=== PATIENT | female | born 1960 | race Caucasian/White ===

== ENCOUNTER → 2016-10-18 | Outpatient (CLI) | payer OTHER ==
[~2016-10-18] VITALS: Ht 157.5 cm; Wt 105.2 kg
[~2016-10-18] MED LIST: ACTIVELLA1 TAB PO; ASPIR-TRIN325 M1 PO; ATENOLOL PO; ATORVASTATIN CA40 MG PO; CARAFATE1 GM PO; CARISOPRODOL350 MG PO; CYCLOBENZAPRINE5 MG PO; CYMBALTA30 MG PO; CYMBALTA60 MG PO; FORTAMET1000 M1 PO; Flexeril PO; GLUCOPHAGE1000 MG PO; IMDUR120 MG PO; IMDUR60 MG PO; JANUMET 50/11 TABLET PO; K-DUR20 MEQ PO; LANTUS 3 M100 UNITS/ SC; LANTUS 3 M100 UNITS1 SC; LIPITOR10 MG PO; LIPITOR40 MG PO; LORCET 5-325 M1 EACH PO; LYRICA100 MG PO; LYRICA150 MG PO; METFORMIN HCL1000 MG PO; MOTRIN600 MG PO; NIASPAN,SLO-NI500 MG PO; NITROLINGUAL S4.9 GM MM; NITROSTAT,NITR0.4 M1 SL; NITROSTAT0.4 MG SL; NORVASC2.5 MG PO; NOVOLOG MI100 UNIT/M SC; NOVOLOG PE100 UNITS/ SC; PANTOPRAZOLE SO40 MG PO; PHENERGAN12.5 M1 PO; PLAVIX75 MG PO; PRINIVIL10 MG PO; PROMETHAZINE12.5 M1 PO; PROTONIX40 MG PO; Phenergan PO; REGLAN5 MG PO; Reglan PO; TENORMIN50 MG PO; TOPROL XL25 MG PO; TOPROL XL50 MG PO; TRAMADOL HCL50 MG PO; TRESIBA FL100 UNIT/1 SC; TRESIBA FL200 UNIT/1 SC; Tenormin PO; ULTRAM50 MG PO; VALIUM5 MG PO; ZESTRIL,PRINIVI10 M1 PO; ZETIA10 MG PO; ZOFRAN4 MG PO
[2016-10-18 08:19] LABS: POINT-OF-CARE METER ID UU13113694; POINT-OF-CARE USER ID AHSRSCGAB
== END | disposition home or self-care (01) ==
LOC: AMB 06:56
PROVIDERS: Internal Medicine
PROC: 0DB48ZX Excision of Esophagogastric Junction, Via Natural or Artificial Opening Endoscopic, Diagnostic (ICD-10-PCS; principal; 2016-10-18)
PROC: 0DB68ZX Excision of Stomach, Via Natural or Artificial Opening Endoscopic, Diagnostic (ICD-10-PCS; principal; 2016-10-18)
PROC: 0DJD8ZZ Inspection of Lower Intestinal Tract, Via Natural or Artificial Opening Endoscopic (ICD-10-PCS; principal; 2016-10-18)
DX: Z12.11 Encounter for screening for malignant neoplasm of colon (principal); R13.10 Dysphagia, unspecified; J44.9 Chronic obstructive pulmonary disease, unspecified; I10 Essential (primary) hypertension; E11.9 Type 2 diabetes mellitus without complications; I25.2 Old myocardial infarction; Z95.1 Presence of aortocoronary bypass graft; Z87.891 Personal history of nicotine dependence; Z88.0 Allergy status to penicillin
CPT/HCPCS: 82948; 88305; 88342 TC; J3010

== ENCOUNTER → 2017-01-11 | Day surgery (SDC) | payer OTHER ==
[~2017-01-11] VITALS: Ht 157.5 cm; Wt 106.1 kg
== END | disposition home or self-care (01) ==
LOC: CATH 06:32
DX: Z53.9 Procedure and treatment not carried out, unspecified reason (principal)

== ENCOUNTER 2017-01-25 06:34 | Day surgery (SDC) | payer OTHER ==
[~2017-01-25] VITALS: Ht 157.5 cm; Wt 105.7 kg
[2017-01-25 07:42] LABS: POINT-OF-CARE METER ID UU13113696
[2017-01-25 10:50] LABS: POINT-OF-CARE METER ID UU13113819; POINT-OF-CARE USER ID 515036437
== END 2017-01-25 15:10 | disposition home or self-care (01) ==
LOC: CATH 06:34
PROVIDERS: Surgery
PROC: B4101ZZ Fluoroscopy of Abdominal Aorta using Low Osmolar Contrast (ICD-10-PCS; principal; 2017-01-25)
DX: I73.9 Peripheral vascular disease, unspecified (principal); I70.8 Atherosclerosis of other arteries; I25.10 Atherosclerotic heart disease of native coronary artery without angina pectoris; K21.9 Gastro-esophageal reflux disease without esophagitis; E11.40 Type 2 diabetes mellitus with diabetic neuropathy, unspecified; E78.00 Pure hypercholesterolemia, unspecified; Z88.0 Allergy status to penicillin; E66.9 Obesity, unspecified; Z68.41 Body mass index [BMI] 40.0-44.9, adult; E78.5 Hyperlipidemia, unspecified; Z79.02 Long term (current) use of antithrombotics/antiplatelets; Z79.4 Long term (current) use of insulin; Z79.82 Long term (current) use of aspirin; Z87.891 Personal history of nicotine dependence; Z80.3 Family history of malignant neoplasm of breast; Z80.1 Family history of malignant neoplasm of trachea, bronchus and lung; Z82.49 Family history of ischemic heart disease and other diseases of the circulatory system
CPT/HCPCS: 82948; C1750; C1760; C1769; C1894; J1580; J1644; J2250; J2405; J3010; J7050; S0020; S0030

== ENCOUNTER 2017-05-07 17:56 | Inpatient (IN) | payer OTHER ==
[~2017-05-07] VITALS: Ht 157.5 cm; Wt 95.9 kg
[2017-05-07] MEDS ORDERED: NOVOLOG MI100 UNIT/2 SC (18:04)
[2017-05-07 19:03] LABS: HEMATOCRIT 52.4 % (36.0-46.0); MCH 30.9 PG (29.0-34.0); MCHC 33.2 G/DL (30.0-36.0); MCV 93.1 FL (83-99); PLATELET COUNT 510 K/uL (156-360); RBC DIS.WIDTH-CV 15.5 % (11.8-14.6); RBC DIS.WIDTH-SD 53.5 % (39-53); RED BLOOD COUNT 5.63 M/uL (3.80-5.20); WHITE BLOOD COUNT 19.1 K/uL (4.1-10.2)
[2017-05-07 19:16] LABS: CHLORIDE 105 mEq/L (99-109); POTASSIUM 4.9 mEq/L (3.7-5.4); SODIUM 134 mEq/L (136-147)
[2017-05-07 19:19] LABS: ANION GAP 27 MEQ/L (2-14)
[2017-05-07 19:21] LABS: GFR ESTIMATE (CALCULATED) 33 mL/min/
[2017-05-07 19:22] LABS: UREA NITROGEN (BUN) 21 mg/dL (9-23)
[2017-05-07 19:23] LABS: GLUCOSE 593 mg/dL (70-99)
[2017-05-07 19:28] LABS: TROP-I INTERPRETATION NEGATIVE; TROPONIN-I < 0.01 ng/mL (0.0-0.30)
[2017-05-07 19:48] LABS: CARBOXY HGB 0.4 % (0-5); METHEMOGLOBIN 0.8 % (0-1.5); PO2 141 mm Hg (80-100)
[2017-05-07 19:49] LABS: COMMENTS - BLOOD GASES C+; DEVICE RA; PCO2 < 20 mm Hg (35-45); SITE LR; TOTAL RESP RATE 26 resp/min; pH < 6.91 (7.35-7.45)
[2017-05-07 20:29] LABS: CHLORIDE 108 mEq/L (99-109); POTASSIUM 4.6 mEq/L (3.7-5.4); SODIUM 135 mEq/L (136-147)
[2017-05-07 20:30] LABS: MAGNESIUM 2.6 mg/dL (1.3-2.7)
[2017-05-07 20:32] LABS: ANION GAP 26 MEQ/L (2-14)
[2017-05-07 20:35] LABS: GFR ESTIMATE (CALCULATED) 38 mL/min/
[2017-05-07 20:36] LABS: UREA NITROGEN (BUN) 21 mg/dL (9-23)
[2017-05-07 20:37] LABS: GLUCOSE 595 mg/dL (70-99); LIPASE 61 U/L (1.0-51.0)
[2017-05-07 20:41] LABS: ADD MIUA? YES; BILIRUBIN NEGATIVE; BLOOD SMALL; COLOR STRAW ((YELLOW)); GLUCOSE (STRIP) >=500; KETONES 80; LEUKOCYTES NEGATIVE; NITRITE NEGATIVE; PROTEIN (STRIP) 100; SPECIFIC GRAVITY 1.018 (1.000-1.030); UROBILINOGEN 0.2 MG/DL (0.2-1.0)
[2017-05-07 20:43] LABS: BACTERIA RARE /HPF; EPITHELIAL CELLS RARE /HPF; MUCUS TRACE /LPF; RED BLOOD CELLS 0-5 /HPF (0-5); WHITE BLOOD CELLS 0-5 /HPF (0-5)
[2017-05-07] MEDS ORDERED: MELOXICAM15 MG PO (20:44)
[2017-05-07] MEDS ORDERED: NITROSTAT0.4 MG SL (20:46)
[2017-05-07 20:59] LABS: Estimated Average Glucose 318 mg/dL (70-123); HEMOGLOBIN A1c (GLYCOHEMOGLOB) 12.7 % HGB (Below 5.7)
[2017-05-07 22:30] VITALS: BP 102/63
[2017-05-07 23:00] VITALS: BP 126/63; BP 140/66
[2017-05-07 23:30] VITALS: BP 113/84
[2017-05-07 23:37] LABS: POINT-OF-CARE METER ID UU14162636
[2017-05-07 23:59] LABS: METH RESISTANT S AUREUS PCR NEGATIVE (NEGATIVE)
[2017-05-08] VITALS (25 sets, daily range): BP systolic 98–165; BP diastolic 61–112
[2017-05-08] LABS: PROBE CHECK PASS; SPECIMEN PROCESSING CONTROL PASS
[2017-05-08 00:37] LABS: CARBOXY HGB 0.2 % (0-5); METHEMOGLOBIN 1.4 % (0-1.5); PCO2 < 19 mm Hg (35-45)
[2017-05-08 00:38] LABS: PEEP 5 CM/H20; PO2 422 mm Hg (80-100); TIDAL VOLUME 550 ML; TOTAL RESP RATE 33 resp/min; pH 6.97 (7.35-7.45)
[2017-05-08 00:39] LABS: DEVICE VENT; FI02 100 %; MECHANICAL RATE 25 resp/min; MODE ACVC+; SITE LR
[2017-05-08 00:59] LABS: VENOUS PCO2 25 mm Hg (41-51)
[2017-05-08 01:05] LABS: CHLORIDE 118 mEq/L (99-109); POTASSIUM 4.4 mEq/L (3.7-5.4); SODIUM 141 mEq/L (136-147)
[2017-05-08 01:07] LABS: GLUCOSE 368 mg/dL (70-99)
[2017-05-08 01:08] LABS: CARBON DIOXIDE (BICARBONATE) ND MEQ/L (20-31)
[2017-05-08 01:08] LABS: ANION GAP 20 MEQ/L (2-14)
[2017-05-08 01:12] LABS: UREA NITROGEN (BUN) 19 mg/dL (9-23)
[2017-05-08 01:15] LABS: GFR ESTIMATE (CALCULATED) 55 mL/min/
[2017-05-08 01:22] LABS: POINT-OF-CARE METER ID UU14162636
[2017-05-08 01:59] LABS: POINT-OF-CARE METER ID UU14162636
[2017-05-08 03:03] LABS: POINT-OF-CARE METER ID UU14162636
[2017-05-08 03:45] LABS: POINT-OF-CARE METER ID UU14162636
[2017-05-08 04:53] LABS: POINT-OF-CARE METER ID UU13113731
[2017-05-08 04:58] LABS: HEMATOCRIT 46.7 % (36.0-46.0); MCH 30.6 PG (29.0-34.0); MCHC 33.2 G/DL (30.0-36.0); MCV 92.3 FL (83-99); MEAN PLAT.VOLUME 10.1 uM^3 (9.5-12.4); PLATELET COUNT 424 K/uL (156-360); RBC DIS.WIDTH-CV 15.8 % (11.8-14.6); RBC DIS.WIDTH-SD 53.2 % (39-53); RED BLOOD COUNT 5.06 M/uL (3.80-5.20); WHITE BLOOD COUNT 21.7 K/uL (4.1-10.2)
[2017-05-08 05:09] LABS: CHLORIDE 120 mEq/L (99-109); SODIUM 144 mEq/L (136-147)
[2017-05-08 05:11] LABS: GLUCOSE 275 mg/dL (70-99); MAGNESIUM 2.1 mg/dL (1.3-2.7)
[2017-05-08 05:12] LABS: ANION GAP 21 MEQ/L (2-14)
[2017-05-08 05:15] LABS: GFR ESTIMATE (CALCULATED) 50 mL/min/
[2017-05-08 05:16] LABS: UREA NITROGEN (BUN) 20 mg/dL (9-23)
[2017-05-08 05:55] LABS: POINT-OF-CARE METER ID UU14162636
[2017-05-08 06:55] LABS: POINT-OF-CARE METER ID UU14162636
[2017-05-08 07:44] LABS: POINT-OF-CARE METER ID UU13113731
[2017-05-08 08:38] LABS: POINT-OF-CARE METER ID UU14162636
[2017-05-08 09:42] LABS: POINT-OF-CARE METER ID UU14162636
[2017-05-08 09:44] LABS: ANION GAP 24 MEQ/L (2-14); CHLORIDE 116 MEQ/L (99-109); GFR ESTIMATE (CALCULATED) > 59 mL/min/; GLUCOSE 268 mg/dL (70-99); POTASSIUM 4.2 MEQ/L (3.7-5.4); SAMPLE HEMOLYSIS CHECK 1; SAMPLE ICTERIC CHECK 0; SAMPLE LIPEMIA CHECK 0; SODIUM 145 MEQ/L (136-147); UREA NITROGEN (BUN) 20 mg/dL (9-23)
[2017-05-08 09:46] LABS: POINT-OF-CARE METER ID UU13113731
[2017-05-08 09:57] LABS: POINT-OF-CARE METER ID UU13113702
[2017-05-08 09:57] LABS: POINT-OF-CARE METER ID UU14162636
[2017-05-08 09:57] LABS: POINT-OF-CARE METER ID UU13113702
[2017-05-08 11:08] LABS: POINT-OF-CARE METER ID UU14162636
[2017-05-08 11:54] LABS: POINT-OF-CARE METER ID UU14162636
[2017-05-08 13:01] LABS: POINT-OF-CARE METER ID UU13113748
[2017-05-08 13:13] LABS: ANION GAP 21 MEQ/L (2-14); CHLORIDE 115 MEQ/L (99-109); GFR ESTIMATE (CALCULATED) > 59 mL/min/; GLUCOSE 193 mg/dL (70-99); MAGNESIUM 1.9 mg/dl (1.3-2.7); POTASSIUM 3.2 MEQ/L (3.7-5.4); SAMPLE HEMOLYSIS CHECK 0; SAMPLE ICTERIC CHECK 0; SAMPLE LIPEMIA CHECK 1; SODIUM 143 MEQ/L (136-147); UREA NITROGEN (BUN) 20 mg/dL (9-23)
[2017-05-08 14:10] LABS: POINT-OF-CARE METER ID UU13113731
[2017-05-08 15:14] LABS: POINT-OF-CARE METER ID UU14162636
[2017-05-08 16:32] LABS: POINT-OF-CARE METER ID UU13113731
[2017-05-08 16:48] LABS: ANION GAP 20 MEQ/L (2-14); CHLORIDE 112 MEQ/L (99-109); GFR ESTIMATE (CALCULATED) > 59 mL/min/; GLUCOSE 162 mg/dL (70-99); MAGNESIUM 1.8 mg/dl (1.3-2.7); POTASSIUM 2.9 MEQ/L (3.7-5.4); SAMPLE HEMOLYSIS CHECK 0; SAMPLE ICTERIC CHECK 0; SAMPLE LIPEMIA CHECK 0; SODIUM 142 MEQ/L (136-147); UREA NITROGEN (BUN) 19 mg/dL (9-23)
[2017-05-08 17:19] LABS: POINT-OF-CARE METER ID UU13113731
[2017-05-08 18:32] LABS: POINT-OF-CARE METER ID UU13113731
[2017-05-08 19:47] LABS: POINT-OF-CARE METER ID UU13113748
[2017-05-08 20:37] LABS: ANION GAP 20 MEQ/L (2-14); CHLORIDE 109 MEQ/L (99-109); GFR ESTIMATE (CALCULATED) > 59 mL/min/; GLUCOSE 177 mg/dL (70-99); MAGNESIUM 1.7 mg/dl (1.3-2.7); POTASSIUM 2.9 MEQ/L (3.7-5.4); SAMPLE HEMOLYSIS CHECK 0; SAMPLE ICTERIC CHECK 0; SAMPLE LIPEMIA CHECK 0; SODIUM 141 MEQ/L (136-147); UREA NITROGEN (BUN) 19 mg/dL (9-23)
[2017-05-08 20:45] LABS: POINT-OF-CARE METER ID UU13113731
[2017-05-08 21:46] LABS: POINT-OF-CARE METER ID UU13113731
[2017-05-08 22:50] LABS: BASE EXCESS -4.5 mEq/L (-3 to +3); BICARBONATE 15.2 mEq/L (22-26); CARBOXY HGB 0.3 % (0-5); METHEMOGLOBIN 1.3 % (0-1.5); PCO2 19 mm Hg (35-45)
[2017-05-08 22:51] LABS: COMMENTS - BLOOD GASES C+; DEVICE VENT; FI02 30 %; MECHANICAL RATE 25 resp/min; MODE ACVC+; PEEP 5 CM/H20; PO2 156 mm Hg (80-100); SITE LR; TIDAL VOLUME 550 ML; TOTAL RESP RATE 28 resp/min; pH 7.51 (7.35-7.45)
[2017-05-08 23:47] LABS: POINT-OF-CARE METER ID UU13113731
[2017-05-09] VITALS (23 sets, daily range): BP systolic 99–151; BP diastolic 69–101
[2017-05-09 00:40] LABS: POINT-OF-CARE METER ID UU13113731
[2017-05-09 01:02] LABS: MAGNESIUM 1.8 mg/dL (1.3-2.7)
[2017-05-09 01:09] LABS: CHLORIDE 112 mEq/L (99-109); POTASSIUM 2.7 mEq/L (3.7-5.4); SODIUM 140 mEq/L (136-147)
[2017-05-09 01:11] LABS: GLUCOSE 166 mg/dL (70-99)
[2017-05-09 01:12] LABS: ANION GAP 15 MEQ/L (2-14)
[2017-05-09 01:14] LABS: GFR ESTIMATE (CALCULATED) 50 mL/min/
[2017-05-09 01:15] LABS: UREA NITROGEN (BUN) 18 mg/dL (9-23)
[2017-05-09 01:46] LABS: POINT-OF-CARE METER ID UU14162636
[2017-05-09 02:49] LABS: POINT-OF-CARE METER ID UU14162636
[2017-05-09 03:48] LABS: POINT-OF-CARE METER ID UU14162636
[2017-05-09 04:45] LABS: POINT-OF-CARE METER ID UU14162636
[2017-05-09 05:36] LABS: BASE EXCESS -9.9 mEq/L (-3 to +3); BICARBONATE 12.7 mEq/L (22-26); CARBOXY HGB 0.6 % (0-5); METHEMOGLOBIN 1.1 % (0-1.5); PCO2 22 mm Hg (35-45)
[2017-05-09 05:37] LABS: COMMENTS - BLOOD GASES C+; DEVICE VENT; FI02 30 %; MODE ACVC+; PO2 64 mm Hg (80-100); SITE LR; pH 7.37 (7.35-7.45)
[2017-05-09 05:38] LABS: MECHANICAL RATE 20 resp/min; PEEP 5 CM/H20; TIDAL VOLUME 450 ML; TOTAL RESP RATE 25 resp/min
[2017-05-09 05:44] LABS: ANION GAP 20 MEQ/L (2-14); CHLORIDE 111 MEQ/L (99-109); GFR ESTIMATE (CALCULATED) 55 mL/min/; GLUCOSE 213 mg/dL (70-99); MAGNESIUM 1.6 mg/dl (1.3-2.7); POTASSIUM 3.6 MEQ/L (3.7-5.4); SAMPLE HEMOLYSIS CHECK 0; SAMPLE ICTERIC CHECK 0; SAMPLE LIPEMIA CHECK 0; SODIUM 143 MEQ/L (136-147); UREA NITROGEN (BUN) 19 mg/dL (9-23)
[2017-05-09 05:47] LABS: POINT-OF-CARE METER ID UU14162636
[2017-05-09 06:35] LABS: POINT-OF-CARE METER ID UU14162636
[2017-05-09 07:37] LABS: POINT-OF-CARE METER ID UU14162636
[2017-05-09 08:32] LABS: ALKALINE PHOSPHATASE 65 IU/L (3-129); ANION GAP 13 MEQ/L (2-14); CHLORIDE 113 MEQ/L (99-109); GFR ESTIMATE (CALCULATED) > 59 mL/min/; GLUCOSE 145 mg/dL (70-99); MAGNESIUM 1.5 mg/dl (1.3-2.7); POTASSIUM 3.1 MEQ/L (3.7-5.4); SAMPLE HEMOLYSIS CHECK 0; SAMPLE ICTERIC CHECK 0; SAMPLE LIPEMIA CHECK 0; SODIUM 143 MEQ/L (136-147); TOTAL BILIRUBIN 0.6 MG/DL (0.0-1.0); UREA NITROGEN (BUN) 18 mg/dL (9-23)
[2017-05-09 08:36] LABS: EOSINOPHIL (%) 0 % (0-5); HEMATOCRIT 43.5 % (36.0-46.0); IMMATURE GRANULOCYTE (%) 0.5 % (0.0-0.7); IMMATURE GRANULOCYTE COUNT 0.1 K/uL; INSTRUMENT ABS NEUTROPHIL CT 8.6 K/uL; LYMPHOCYTE COUNT 0.9 K/uL (1.0-2.8); MCH 30.8 PG (29.0-34.0); MCHC 36.3 G/DL (30.0-36.0); MONOCYTE (%) 12.2 % (3-12); MONOCYTE COUNT 1.3 K/uL (0-0.8); NEUTROPHIL (%) 78.9 % (45-76); NEUTROPHIL COUNT 8.6 K/uL (1.8-6.4); RBC DIS.WIDTH-SD 45.9 % (39-53); RED BLOOD COUNT 5.13 M/uL (3.80-5.20)
[2017-05-09 08:45] LABS: MCV 84.8 FL (83-99)
[2017-05-09 08:53] LABS: POINT-OF-CARE METER ID UU14314082
[2017-05-09 08:55] LABS: PLAT.SUFFICIENCY ADEQUATE; PLATELET CLUMPS PRESENT - PLATELET COUNT APPEARS ADQ.; PLATELET COUNT UNABLE TO REPORT K/uL (156-360)
[2017-05-09 09:13] LABS: POINT-OF-CARE METER ID UU14314082
[2017-05-09 10:07] LABS: POINT-OF-CARE METER ID UU14314082
[2017-05-09 11:07] LABS: POINT-OF-CARE METER ID UU14314082
[2017-05-09 12:25] LABS: POINT-OF-CARE METER ID UU14314082
[2017-05-09 12:57] LABS: ANION GAP 14 MEQ/L (2-14); CHLORIDE 112 MEQ/L (99-109); GFR ESTIMATE (CALCULATED) > 59 mL/min/; GLUCOSE 171 mg/dL (70-99); MAGNESIUM 1.6 mg/dl (1.3-2.7); POTASSIUM 3.1 MEQ/L (3.7-5.4); SAMPLE HEMOLYSIS CHECK 0; SAMPLE ICTERIC CHECK 0; SAMPLE LIPEMIA CHECK 0; SODIUM 143 MEQ/L (136-147); UREA NITROGEN (BUN) 18 mg/dL (9-23)
[2017-05-09 13:29] LABS: POINT-OF-CARE METER ID UU14314082
[2017-05-09 14:47] LABS: POINT-OF-CARE METER ID UU14314082
[2017-05-09 16:29] LABS: ANION GAP 17 MEQ/L (2-14); CHLORIDE 113 MEQ/L (99-109); GFR ESTIMATE (CALCULATED) > 59 mL/min/; GLUCOSE 123 mg/dL (70-99); MAGNESIUM 1.6 mg/dl (1.3-2.7); POTASSIUM 3.1 MEQ/L (3.7-5.4); SAMPLE HEMOLYSIS CHECK 0; SAMPLE ICTERIC CHECK 0; SAMPLE LIPEMIA CHECK 0; SODIUM 146 MEQ/L (136-147); UREA NITROGEN (BUN) 16 mg/dL (9-23)
[2017-05-09 18:06] LABS: POINT-OF-CARE METER ID UU14314082
[2017-05-10] VITALS (18 sets, daily range): BP systolic 0–136; BP diastolic 0–78
[2017-05-10 00:10] LABS: POINT-OF-CARE METER ID UU13113803
[2017-05-10 05:27] LABS: EOSINOPHIL (%) 0 % (0-5); IMMATURE GRANULOCYTE (%) 0.6 % (0.0-0.7); IMMATURE GRANULOCYTE COUNT 0.1 K/uL; INSTRUMENT ABS NEUTROPHIL CT 8.2 K/uL; LYMPHOCYTE COUNT 1.3 K/uL (1.0-2.8); MCH 30.5 PG (29.0-34.0); MCHC 35.6 G/DL (30.0-36.0); MCV 85.8 FL (83-99); MEAN PLAT.VOLUME 10.2 uM^3 (9.5-12.4); MONOCYTE (%) 11.7 % (3-12); MONOCYTE COUNT 1.3 K/uL (0-0.8); NEUTROPHIL COUNT 8.2 K/uL (1.8-6.4); PLATELET COUNT 224 K/uL (156-360); RBC DIS.WIDTH-CV 15.3 % (11.8-14.6); RBC DIS.WIDTH-SD 48.2 % (39-53); RED BLOOD COUNT 4.78 M/uL (3.80-5.20); WHITE BLOOD COUNT 10.8 K/uL (4.1-10.2)
[2017-05-10 05:36] LABS: BASE EXCESS -6.5 mEq/L (-3 to +3); BICARBONATE 16.5 mEq/L (22-26); CARBOXY HGB 1.2 % (0-5); COMMENTS - BLOOD GASES C+A+; DEVICE VENT; FI02 30 %; INSPIRATION TIME 1.1 seconds; MECHANICAL RATE 20 resp/min; MODE AC; PCO2 26 mm Hg (35-45); PEEP 5 CM/H20; PO2 86 mm Hg (80-100); SITE LR; TIDAL VOLUME 450 ML; TOTAL RESP RATE 21 resp/min; pH 7.41 (7.35-7.45)
[2017-05-10 05:55] LABS: POINT-OF-CARE METER ID UU14314083
[2017-05-10 06:21] LABS: ANION GAP 15 MEQ/L (2-14); CHLORIDE 111 MEQ/L (99-109); GFR ESTIMATE (CALCULATED) > 59 mL/min/; POTASSIUM 3.7 MEQ/L (3.7-5.4); SAMPLE HEMOLYSIS CHECK 0; SAMPLE ICTERIC CHECK 0; SAMPLE LIPEMIA CHECK 0; SODIUM 142 MEQ/L (136-147); UREA NITROGEN (BUN) 23 mg/dL (9-23)
[2017-05-10 06:25] LABS: GLUCOSE 311 mg/dL (70-99)
[2017-05-10 10:59] LABS: POINT-OF-CARE METER ID UU14314083
[2017-05-10 14:31] LABS: POINT-OF-CARE METER ID UU14314083
[2017-05-10 17:50] LABS: POINT-OF-CARE METER ID UU14314083
[2017-05-10 23:08] LABS: POINT-OF-CARE METER ID UU14314083; POINT-OF-CARE USER ID LABHNS84
[2017-05-11] VITALS (17 sets, daily range): BP systolic 93–133; BP diastolic 50–85
[2017-05-11 01:54] LABS: POINT-OF-CARE METER ID UU13113748; POINT-OF-CARE USER ID LABHNS84
[2017-05-11 05:47] LABS: EOSINOPHIL (%) 0 % (0-5); HEMATOCRIT 39.3 % (36.0-46.0); IMMATURE GRANULOCYTE (%) 0.4 % (0.0-0.7); INSTRUMENT ABS NEUTROPHIL CT 4.6 K/uL; LYMPHOCYTE COUNT 1.3 K/uL (1.0-2.8); MCH 30.2 PG (29.0-34.0); MCHC 34.1 G/DL (30.0-36.0); MCV 88.5 FL (83-99); MEAN PLAT.VOLUME 10.3 uM^3 (9.5-12.4); MONOCYTE (%) 13.3 % (3-12); MONOCYTE COUNT 0.9 K/uL (0-0.8); NEUTROPHIL (%) 66.8 % (45-76); NEUTROPHIL COUNT 4.6 K/uL (1.8-6.4); PLATELET COUNT 209 K/uL (156-360); RBC DIS.WIDTH-CV 15.4 % (11.8-14.6); RBC DIS.WIDTH-SD 50.5 % (39-53); RED BLOOD COUNT 4.44 M/uL (3.80-5.20); WHITE BLOOD COUNT 6.9 K/uL (4.1-10.2)
[2017-05-11 06:31] LABS: ANION GAP 12 MEQ/L (2-14); CHLORIDE 113 MEQ/L (99-109); GFR ESTIMATE (CALCULATED) > 59 mL/min/; GLUCOSE 167 mg/dL (70-99); SAMPLE HEMOLYSIS CHECK 0; SAMPLE ICTERIC CHECK 0; SAMPLE LIPEMIA CHECK 0; UREA NITROGEN (BUN) 27 mg/dL (9-23)
[2017-05-11 06:36] LABS: SODIUM 152 MEQ/L (136-147)
[2017-05-11 10:32] LABS: POINT-OF-CARE METER ID UU13113748
[2017-05-11 15:24] LABS: POINT-OF-CARE METER ID UU13113748
[2017-05-11 17:39] LABS: POINT-OF-CARE METER ID UU14174217
[2017-05-11 22:06] LABS: POINT-OF-CARE METER ID UU14314084
[2017-05-12 00:18] VITALS: BP 100/56
[2017-05-12 02:16] LABS: POINT-OF-CARE METER ID UU14208750
[2017-05-12 03:50] VITALS: BP 95/55
[2017-05-12 05:13] LABS: POINT-OF-CARE METER ID UU14314084
[2017-05-12 07:37] VITALS: BP 108/64
[2017-05-12 08:40] LABS: ANION GAP 11 MEQ/L (2-14); CHLORIDE 106 MEQ/L (99-109); GFR ESTIMATE (CALCULATED) > 59 mL/min/; POTASSIUM 3.3 MEQ/L (3.7-5.4); SAMPLE HEMOLYSIS CHECK 0; SAMPLE ICTERIC CHECK 0; SAMPLE LIPEMIA CHECK 0; UREA NITROGEN (BUN) 22 mg/dL (9-23)
[2017-05-12 08:41] LABS: GLUCOSE 120 mg/dL (70-99); SODIUM 144 MEQ/L (136-147)
[2017-05-12 11:32] LABS: POINT-OF-CARE METER ID UU14314084
[2017-05-12 16:46] LABS: POINT-OF-CARE METER ID UU14314084; POINT-OF-CARE USER ID STWLMB34
[2017-05-12 17:02] VITALS: BP 124/60
[2017-05-12 21:28] LABS: POINT-OF-CARE METER ID UU14314084
[2017-05-13 00:46] VITALS: BP 102/59
[2017-05-13 07:36] LABS: ANION GAP 10 MEQ/L (2-14); CHLORIDE 110 MEQ/L (99-109); GFR ESTIMATE (CALCULATED) > 59 mL/min/; GLUCOSE 147 mg/dL (70-99); POTASSIUM 3.4 MEQ/L (3.7-5.4); SAMPLE HEMOLYSIS CHECK 0; SAMPLE ICTERIC CHECK 0; SAMPLE LIPEMIA CHECK 0; SODIUM 146 MEQ/L (136-147); UREA NITROGEN (BUN) 15 mg/dL (9-23)
[2017-05-13 08:00] VITALS: BP 113/62
[2017-05-13] MEDS ORDERED: LISINOPRIL5 MG PO (10:33)
[2017-05-13] MEDS ORDERED: TOPROL XL25 MG PO (10:33)
[2017-05-13] MEDS ORDERED: LEVAQUIN750 MG PO (10:34)
== END 2017-05-13 11:45 | disposition home or self-care (01) | DRG 637 ==
LOC: EME 17:56 → 4WEST 20:12 → EDOF 20:12 → ENRESERV 20:19 → 4WEST 22:19 → ENRESERV 05-11 16:51 → 2EAST 05-11 19:56
PROVIDERS: Emergency Medicine; Family Medicine; Hospitalist; Internal Medicine Critical Care Medicine; Internal Medicine Pulmonary Disease; Surgery
DX: E10.10 Type 1 diabetes mellitus with ketoacidosis without coma (principal); J18.9 Pneumonia, unspecified organism; J96.01 Acute respiratory failure with hypoxia; I10 Essential (primary) hypertension; E10.40 Type 1 diabetes mellitus with diabetic neuropathy, unspecified; E78.5 Hyperlipidemia, unspecified; J98.11 Atelectasis; I25.10 Atherosclerotic heart disease of native coronary artery without angina pectoris; K21.9 Gastro-esophageal reflux disease without esophagitis; E87.6 Hypokalemia; E66.9 Obesity, unspecified; E87.0 Hyperosmolality and hypernatremia; E87.1 Hypo-osmolality and hyponatremia; E86.0 Dehydration; I25.2 Old myocardial infarction; Z68.38 Body mass index [BMI] 38.0-38.9, adult; Z95.1 Presence of aortocoronary bypass graft; Z79.4 Long term (current) use of insulin; Z87.891 Personal history of nicotine dependence; Z95.5 Presence of coronary angioplasty implant and graft
CPT/HCPCS: 36600; 71010; 80048; 80048 91; 80053; 81003; 82310; 82803; 82948; 83036; 83605; 83690; 83735; 84100; 84484; 85025; 85027; 87040; 87070; 87086; 87205; 87502; 87641; 92610 GN; 93005; 94002; 94003; 99281; 99285; C1751; J0692; J1650; J1815; J1956; J2704; J3480; J7030; J7050; J7070; S0028